=== PATIENT | female | born 1955 | race Caucasian/White ===

== ENCOUNTER → 2019-03-01 | Outpatient (CLI) | payer OTHER ==
[~2019-03-01] MED LIST: AMLO5TAB9 PO; EZET10TA13 PO; LOSA50TA64 PO; OMEP40CA13 PO; RIVA10TA PO; TRAM50TA4 PO; TRAZ-187 PO
== END | disposition home or self-care (01) ==
LOC: RAH 08:07
PROVIDERS: ATTEND Family Medicine
DX: N13.2 Hydronephrosis with renal and ureteral calculous obstruction (principal); R31.0 Gross hematuria
CPT/HCPCS: 74176

== ENCOUNTER 2019-03-16 08:43 | Day surgery (SDC) | payer OTHER ==
[2019-03-12 14:47] VITALS: BP 101/59
[2019-03-12 14:59] LABS: BASOPHILS % (AUTO) 0.3 % (0.0-5.0); EOSINOPHILS % (AUTO) 1.1 % (0.0-8.0); HEMATOCRIT 37.9 % (36-48); LYMPHOCYTES % (AUTO) 18.4 % (21.0-51.0); MEAN CORPUSCULAR HEMOGLOBIN 30.8 pg (27.0-33.0); MEAN CORPUSCULAR HGB CONC 33.2 g/dL (32.0-36.0); MEAN CORPUSCULAR VOLUME 92.7 fL (79-99); MONOCYTES % (AUTO) 8.3 % (3.0-13.0); NEUTROPHILS % (AUTO) 71.6 % (40.0-77.0); PLATELET COUNT (AUTO) 212 K/uL (130-400); RED BLOOD CELL COUNT(AUTO) 4.09 MIL/uL (4.00-5.50); RED CELL DISTRIBUTION WIDTH 13.1 % (11.0-15.5); WHITE BLOOD COUNT (AUTO) 6.4 K/uL (4.8-10.8)
[2019-03-12 15:08] LABS: CREATININE 1.1 mg/dL (0.5-1.5); POTASSIUM 4.2 mmol/L (3.5-5.1)
[2019-03-12 15:10] VITALS: BP 144/83
--- NOTE | 2019-03-12 17:17 | NUR ---
EKG CALL BACK PENDING FROM DR CALLAWAY REGARDING EKG WITH ATRIAL FIBRILLATION (03/12/19)
--- NOTE | 2019-03-12 17:27 | NUR ---
EKG EKG DONE03/12/[address] CALLAWAY,NO NEW ORDERS, OK TO PROCEED WITH PLANNED SURGERY
[~2019-03-16] VITALS: Ht 167.6 cm; Wt 96.3 kg
[2019-03-16] VITALS (14 sets, daily range): BP systolic 111–150; BP diastolic 67–92
[~2019-03-16 08:43] MED LIST changes: +ATOR20TA65 PO; +CHOL400C9 PO; -EZET10TA13 PO; +MAGN400T40 PO; +METO25TA6 PO; -OMEP40CA13 PO; +RANI150T7 PO; -TRAM50TA4 PO
[2019-03-16] MEDS ORDERED: LACTATED RINGERS 1000ML 1,000 ML IV ONE (08:59)
[2019-03-16] MEDS: CEFTRIAXONE SODIUM 1 GM IVP SCH ×2 (09:00→11:20)
[2019-03-16] MEDS ORDERED: RIVA20TA PO (09:26)
--- NOTE | 2019-03-16 09:27 | NUR ---
SX TEDS/SCD APPLIED TO BLE
[2019-03-16] MEDS ORDERED: IOHEXOL-350 50ML VIAL IV ONE (11:09)
[2019-03-16] MEDS ORDERED: DEXAMETHASONE SOD PHOSPHATE 10MG/ML 1ML VIAL ONE (11:15)
[2019-03-16] MEDS ORDERED: LIDOCAINE PF 2% 5ML ABBOJECT ONE (11:15)
[2019-03-16] MEDS ORDERED: MIDAZOLAM HCL 1 MG/ML 2ML VIAL ONE ×2 (11:15)
[2019-03-16] MEDS ORDERED: ONDANSETRON HCL 4 MG/2 ML VIAL ONE ×2 (11:16→12:58)
[2019-03-16] MEDS ORDERED: FENTANYL CITRATE PF 50 MCG/1 ML 2ML VIAL ONE (11:16)
[2019-03-16] MEDS ORDERED: PROPOFOL 10 MG/ML 20ML VIAL IV ONE (11:16)
[2019-03-16] MEDS ORDERED: ROCURONIUM 10MG/1ML SYR 10 MG/ML ML ONE (11:32)
[2019-03-16] MEDS ORDERED: EPHEDRINE SULFATE 50 MG/ML AMPULE ONE (11:33)
[2019-03-16] MEDS ORDERED: PHENAZOPYRIDINE HCL 200 MG TABLET ONE (12:59)
== END 2019-03-16 14:40 | disposition home or self-care (01) ==
LOC: DAH 08:43
PROVIDERS: ATTEND Urology
DX: N20.0 Calculus of kidney (principal); I10 Essential (primary) hypertension; K21.9 Gastro-esophageal reflux disease without esophagitis; F41.9 Anxiety disorder, unspecified; I48.91 Unspecified atrial fibrillation; J45.909 Unspecified asthma, uncomplicated; M19.90 Unspecified osteoarthritis, unspecified site; E66.9 Obesity, unspecified; Z79.899 Other long term (current) drug therapy
CPT/HCPCS: 36415; 50590; 52332; 80048; 85025; 93005; A4215; A4221; A4222; A4223; A4344; A4510; A4600; A4663; A4930 ×2; A5113; A6260; C1758; C1769; C2617; J0696; J1100; J2001; J2250 ×2; J2405 ×2; J2704; J3010; J3490; J7120; 77002; Q9967

== ENCOUNTER → 2019-05-10 | Outpatient (CLI) | payer OTHER ==
[~2019-05-10] MED LIST changes: -RIVA10TA PO; +RIVA20TA PO
== END | disposition home or self-care (01) ==
LOC: RAH 09:05
PROVIDERS: ATTEND Urology
DX: N20.0 Calculus of kidney (principal); I87.8 Other specified disorders of veins; M47.816 Spondylosis without myelopathy or radiculopathy, lumbar region
CPT/HCPCS: 74018